=== PATIENT | female | born 1985 | race Hispanic/Latino ===

== ENCOUNTER → 2018-01-01 | Outpatient (CLI) | payer OTHER | END | disposition home or self-care (01) | LOC: RAH 07:38 | PROVIDERS: ATTEND Orthopaedic Surgery | DX: M75.42 Impingement syndrome of left shoulder (principal); M75.80 Other shoulder lesions, unspecified shoulder | CPT/HCPCS: 73221 ==

== ENCOUNTER → 2020-11-27 | Outpatient (CLI) | payer OTHER | END | disposition home or self-care (01) | LOC: RAH 13:29 | PROVIDERS: ATTEND Orthopaedic Surgery | DX: S83.231A Complex tear of medial meniscus, current injury, right knee, initial encounter (principal); M94.0 Chondrocostal junction syndrome [Tietze]; X58.XXXA Exposure to other specified factors, initial encounter; Y93.89 Activity, other specified; Y92.89 Other specified places as the place of occurrence of the external cause; Y99.8 Other external cause status | CPT/HCPCS: 73721 ==

== ENCOUNTER 2020-12-25 08:00 | Day surgery (SDC) | payer OTHER ==
[2020-12-22 10:44] LABS: BASOPHILS % (AUTO) 0.4 % (0.0-5.0); EOSINOPHILS % (AUTO) 1.4 % (0.0-8.0); HEMATOCRIT 44.6 % (36-48); LYMPHOCYTES % (AUTO) 38.5 % (21.0-51.0); MEAN CORPUSCULAR HEMOGLOBIN 26.4 pg (27.0-33.0); MEAN CORPUSCULAR HGB CONC 31.4 g/dL (32.0-36.0); MONOCYTES % (AUTO) 5.5 % (3.0-13.0); NEUTROPHILS % (AUTO) 53.8 % (40.0-77.0); PLATELET COUNT (AUTO) 268 K/uL (130-400); RED BLOOD CELL COUNT(AUTO) 5.31 MIL/uL (4.00-5.50); RED CELL DISTRIBUTION WIDTH 13.9 % (11.0-15.5); WHITE BLOOD COUNT (AUTO) 5.1 K/uL (4.8-10.8)
[2020-12-22 11:08] LABS: CREATININE 0.8 mg/dL (0.5-1.5); POTASSIUM 4.4 mmol/L (3.5-5.1)
[2020-12-22 12:27] VITALS: BP 150/68
[2020-12-25] VITALS (16 sets, daily range): BP systolic 120–147; BP diastolic 65–90
[~2020-12-25] VITALS: Ht 167.6 cm; Wt 92.0 kg
[~2020-12-25 08:00] MED LIST: CEFAZOLIN SODIUM 1 GM VIAL IVP SCH; COLE1TAB2 PO; MAGN400C PO; VITAMIN D PO
[2020-12-25] MEDS ORDERED: SUCCINYLCHOLINE CHLORIDE 20 MG/ML 10 ML VIAL ONE (09:43)
[2020-12-25] MEDS ORDERED: DEXAMETHASONE SOD PHOSPHATE 10MG/ML 1ML VIAL ONE (09:43)
[2020-12-25] MEDS ORDERED: LIDOCAINE PF 2% 5ML ABBOJECT ONE (09:43)
[2020-12-25] MEDS ORDERED: NEOSTIGMINE 5MG/5ML SYR IV ONE (09:44)
[2020-12-25] MEDS ORDERED: PROPOFOL 10 MG/ML 20ML VIAL IV ONE (09:44)
[2020-12-25] MEDS ORDERED: GLYCOPYRROLATE 1 MG/5 ML SYRINGE ONE (09:44)
[2020-12-25] MEDS ORDERED: MIDAZOLAM HCL 1 MG/ML 2ML VIAL ONE (09:44)
[2020-12-25] MEDS ORDERED: ONDANSETRON HCL 4 MG/2 ML VIAL ONE (09:44)
[2020-12-25] MEDS ORDERED: FENTANYL CITRATE PF 50 MCG/1 ML 2ML VIAL ONE ×2 (09:45→11:20)
[2020-12-25] MEDS ORDERED: ROCURONIUM 10MG/1ML SYR 10 MG/ML ML ONE (09:45)
[2020-12-25] MEDS ORDERED: IBUP-2071 PO (11:42)
[2020-12-25] MEDS ORDERED: CEPH500B PO (11:42)
[2020-12-25] MEDS ORDERED: ACET1TAB25 PO (11:42)
[2020-12-25] MEDS ORDERED: MEPERIDINE-PF 25 MG/ML SYG ONE ×2 (12:10→12:19)
== END 2020-12-25 13:15 | disposition home or self-care (01) ==
LOC: DAH 08:00
PROVIDERS: ATTEND Orthopaedic Surgery
DX: M94.8X6 Other specified disorders of cartilage, lower leg (principal); S83.241A Other tear of medial meniscus, current injury, right knee, initial encounter; Z20.822 Contact with and (suspected) exposure to COVID-19; M22.41 Chondromalacia patellae, right knee; J45.909 Unspecified asthma, uncomplicated; G89.29 Other chronic pain; E66.9 Obesity, unspecified; K21.9 Gastro-esophageal reflux disease without esophagitis; E11.9 Type 2 diabetes mellitus without complications; E03.9 Hypothyroidism, unspecified; Z82.49 Family history of ischemic heart disease and other diseases of the circulatory system; Z90.49 Acquired absence of other specified parts of digestive tract; Z98.890 Other specified postprocedural states; Z83.3 Family history of diabetes mellitus; Z80.9 Family history of malignant neoplasm, unspecified; Z72.89 Other problems related to lifestyle; Z88.8 Allergy status to other drugs, medicaments and biological substances
CPT/HCPCS: 29877; 36415; 80048; 84703; 85025; A4215; A4221; A4222; A4223 ×2; A4606; A4649 ×2; A4663; A4930 ×2; A5120; A6223; C9803; J0330; J0690; J1100; J2001; J2175 ×2; J2250; J2405; J2704; J2710; J3010 ×2; J3490; J7030; J7120; U0003

== ENCOUNTER → 2021-05-25 | Outpatient (CLI) | payer OTHER ==
[~2021-05-25] MED LIST changes: +ACET1TAB25 PO; -CEFAZOLIN SODIUM 1 GM VIAL IVP SCH; +CEPH500B PO; +IBUP-2071 PO
== END | disposition home or self-care (01) ==
LOC: RAH 07:53
PROVIDERS: ATTEND Orthopaedic Surgery
DX: S86.811A Strain of other muscle(s) and tendon(s) at lower leg level, right leg, initial encounter (principal); M93.851 Other specified osteochondropathies, right thigh; X58.XXXA Exposure to other specified factors, initial encounter; Y93.89 Activity, other specified; Y92.89 Other specified places as the place of occurrence of the external cause; Y99.8 Other external cause status
CPT/HCPCS: 73721